=== PATIENT | female | born 1995 | race American Indian/Alaskan Native ===

== ENCOUNTER 2017-11-29 05:31 | Emergency (ER) | payer MEDICAID ==
[2017-11-29 06:11] LABS: Hematocrit 41.6 % (30.3-42.9); Hemoglobin 14.1 gm/dl (10.1-14.3); Mean Corpuscular HGB Conc 34 % (30-34); Mean Corpuscular Hemoglobin 31 pg (28-32); Mean Corpuscular Volume 91 fl (79-97); Platelet Count 302 K/mm3 (140-440); Red Blood Count 4.56 M/mm3 (3.65-5.03); Red Cell Distribution Width 13.3 % (13.2-15.2)
[2017-11-29 06:36] LABS: Alanine Aminotransferase 20 units/L (7-56); Albumin 4.4 g/dL (3.9-5); BUN/Creatinine Ratio 23; Blood Urea Nitrogen 9 mg/dL (7-17); Calcium 9.2 mg/dL (8.4-10.2); Hemolysis Index 8
[2017-11-29 06:55] LABS: Basophils % (Manual) 0 % (0.0-1.8); Eosinophils % (Manual) 0 % (0.0-4.3); Total Cells Counted 100
[2017-11-29 06:56] LABS: RBC Morphology Normal
--- NOTE | 2017-11-29 07:09 | Emergency Department Report ---
ED General Adult HPI - General Chief complaint: Nausea/Vomiting/Diarrhea Stated complaint: NAUSEA/VOMITING Time Seen by Provider: 11/29/17 07:06 Source: patient, EMS (ems notes not available at time of chart dictation), RN notes reviewed Mode of arrival: Stretcher Limitations: No Limitations - History of Present Illness Initial comments: This is a 22-year-old female who was previously unknown to this provider. Patient presents to the ER with resolved nausea and vomiting. Patient reports episodes of nonbloody, nonbilious emesis that started around 5:00 PM yesterday. This is associated with epigastric discomfort, was only started after she vomited. Prior to the emesis, there was no headache, neck pain, chest pain, abdominal pain, shortness of breath. Patient reports that she is not . Her epigastric discomfort does not radiate anywhere. It worsens when she vomits and it decreases with rest. Patient denies irritative urinary symptoms, and reports that occasionally her symptoms improve when taking a hot bath or shower. -: Gradual Location: abdomen Radiation: non-radiation Severity scale (0 -10): 8 Quality: aching Consistency: intermittent Improves with: medication, rest Worsens with: other Associated Symptoms: nausea/vomiting. denies: confusion, chest pain, shortness of breath, syncope, weakness - Related Data Previous Rx's Medication Instructions Recorded Last Taken Type Famotidine [Pepcid] 20 mg PO QDAY #30 tablet 11/29/17 Unknown Rx Ondansetron [Zofran Odt] 4 mg PO Q8HR PRN #20 tab.rapdis 11/29/17 Unknown Rx Allergies Allergy/AdvReac Type Severity Reaction Status Date / Time No Known Allergies Allergy Verified 11/29/17 05:38 ED Review of Systems ROS: Stated complaint: NAUSEA/VOMITING Other details as noted in HPI Constitutional: denies: fever Eyes: denies: vision change ENT: denies: epistaxis Respiratory: denies: cough Cardiovascular: denies: chest pain Gastrointestinal: nausea, vomiting Genitourinary: denies: urgency, dysuria Musculoskeletal: as per HPI. denies: back pain Skin: denies: lesions Neurological: denies: weakness Psychiatric: denies: anxiety ED Past Medical Hx - Past Medical History Previous Medical History?: Yes Hx GERD: Yes - Surgical History Past Surgical History?: No - Social History Smoking Status: Unknown if ever smoked - Medications Home Medications: Home Medications Medication Instructions Recorded Confirmed Last Taken Type Famotidine [Pepcid] 20 mg PO QDAY #30 tablet 11/29/17 Unknown Rx Ondansetron [Zofran Odt] 4 mg PO Q8HR PRN #20 tab.rapdis 11/29/17 Unknown Rx ED Physical Exam - General Limitations: No Limitations General appearance: alert, in no apparent distress - Head Head exam: Present: atraumatic, normocephalic - Eye Eye exam: Present: normal appearance, EOMI. Absent: nystagmus - ENT ENT exam: Present: normal exam, normal orophraynx, mucous membranes moist, normal external ear exam - Neck Neck exam: Present: normal inspection, full ROM - Respiratory Respiratory exam: Present: normal lung sounds bilaterally. Absent: respiratory distress - Cardiovascular Cardiovascular Exam: Present: regular rate, normal rhythm, normal heart sounds. Absent: systolic murmur, diastolic murmur, rubs, gallop - GI/Abdominal GI/Abdominal exam: Present: soft, normal bowel sounds. Absent: distended, tenderness, guarding, rebound, rigid, pulsatile mass - Extremities Exam Extremities exam: Present: normal inspection, full ROM, normal capillary refill. Absent: pedal edema, joint swelling, calf tenderness - Back Exam Back exam: Present: normal inspection, full ROM. Absent: tenderness, CVA tenderness (R), paraspinal tenderness, vertebral tenderness - Neurological Exam Neurological exam: Present: alert, oriented X3, CN II-XII intact, normal gait, other (Extraocular movements intact. Tongue midline. No facial droop. Facial sensation intact to light touch in the V1, V2, V3 distribution bilaterally. 5 and 5 strength in 4 extremities.. Sensation is intact to light touch in 4 extremities.). Absent: motor sensory deficit - Psychiatric Psychiatric exam: Present: normal affect, normal mood - Skin Skin exam: Present: warm, dry, intact, normal color. Absent: rash ED Course Vital Signs 11/29/17 11/29/17 05:40 09:02 Temperature 98.6 F 98.8 F Pulse Rate 96 H 73 Respiratory 22 20 Rate Blood Pressure 118/71 111/68 [Left] O2 Sat by Pulse 100 100 Oximetry - Reevaluation(s) Reevaluation #1: 11/29/17 08:37 Vital Signs 11/29/17 05:40 Temperature 98.6 F Pulse Rate 96 H Respiratory 22 Rate Blood Pressure 118/71 [Left] O2 Sat by Pulse 100 Oximetry Labs 11/29/17 11/29/17 11/29/17 06:02 06:02 08:13 WBC 15.0 H RBC 4.56 Hgb 14.1 Hct 41.6 MCV 91 MCH 31 MCHC 34 RDW 13.3 Plt Count 302 Add Manual Diff Complete Total Counted 100 Seg Neutrophils % Head Inspector And Center Marker Seg Neuts % (Manual) 92.0 H Band Neutrophils % 0 Lymphocytes % (Manual) 3.0 L Reactive Lymphs % (Man) 1.0 Monocytes % (Manual) 4.0 Eosinophils % (Manual) 0 Basophils % (Manual) 0 Metamyelocytes % 0 Myelocytes % 0 Promyelocytes % 0 Blast Cells % 0 Nucleated RBC % Not Reportable Seg Neutrophils # Man 13.8 H Band Neutrophils # 0.0 Lymphocytes # (Manual) 0.5 L Abs React Lymphs (Man) 0.2 Monocytes # (Manual) 0.6 Eosinophils # (Manual) 0.0 Basophils # (Manual) 0.0 Metamyelocytes # 0.0 Myelocytes # 0.0 Promyelocytes # 0.0 Blast Cells # 0.0 WBC Morphology Not Reportable Hypersegmented Neuts Not Reportable Hyposegmented Neuts Not Reportable Hypogranular Neuts Not Reportable Smudge Cells Not Reportable Toxic Granulation Not Reportable Toxic Vacuolation Not Reportable Dohle Bodies Not Reportable Pelger-Huet Anomaly Not Reportable [place] Rods Not Reportable Platelet Estimate Appears normal Clumped Platelets Not Reportable Plt Clumps, EDTA Not Reportable Large Platelets Not Reportable Giant Platelets Not Reportable Platelet Satelliting Not Reportable Plt Morphology Comment Not Reportable RBC Morphology Normal Dimorphic RBCs Not Reportable Polychromasia Not Reportable Hypochromasia Not Reportable Poikilocytosis Not Reportable Anisocytosis Not Reportable Microcytosis Not Reportable Macrocytosis Not Reportable Spherocytes Not Reportable Pappenheimer Bodies Not Reportable Sickle Cells Not Reportable Target Cells Not Reportable Tear Drop Cells Not Reportable Ovalocytes Not Reportable Helmet Cells Not Reportable [place] Bodies Not Reportable [place] Rings Not Reportable Deering Cells Not Reportable Bite Cells Not Reportable Crenated Cell Not Reportable Elliptocytes Not Reportable Acanthocytes (Spur) Not Reportable Rouleaux Not Reportable Hemoglobin C Crystals Not Reportable Schistocytes Not Reportable Malaria parasites Not Reportable [place] Bodies Not Reportable Hem Pathologist Commnt No Sodium 140 Potassium 4.1 Chloride 102.7 Carbon Dioxide 21 L Anion Gap 20 BUN 9 Creatinine 0.4 L Estimated GFR > 60 BUN/Creatinine Ratio 23 Glucose 111 H Calcium 9.2 Total Bilirubin 0.40 AST 21 ALT 20 Alkaline Phosphatase 59 Total Protein 7.5 Albumin 4.4 Albumin/Globulin Ratio 1.4 Urine Bilirubin Neg Urine RBC (Auto) 1.0 U Epithel Cells (Auto) 13.0 Reevaluation #2: 11/29/17 08:37 Differential diagnosis, including but not limited to: GERD, gastritis, cannabinoid hyperemesis syndrome, Assessment and plan: 22-year-old female with resolved nausea and vomiting. Reports that this is happened to her in the past. Reports symptoms improved with exposure to hot water, Bath, shower. Emesis has resolved at this time, patient is clinically sober at this time, and is resting comfortably. She is afebrile with reassuring vital signs, laboratory studies so far unremarkable. She is tolerating liquid feeds. Urine patency test is pending, EKG is pending. Reevaluation #3: 11/29/17 08:56 Vital signs stable, EKG unremarkable, not , urinalysis is not consistent with UTI, belly soft. Exam and tolerating liquid feeds. Patient will be discharged at this time. ED Medical Decision Making - Lab Data Result diagrams: 11/29/17 06:02 11/29/17 06:02 - EKG Data -: EKG Interpreted by Me - EKG Data When compared to previous EKG there are: previous EKG unavailable 11/29/17 08:56 Sinus, 69 beats per minute, normal intervals, normal axis, unremarkable EKG, not morphologically consistent with stemi Critical care attestation.: If time is entered above; I have spent that time in minutes in the direct care of this critically ill patient, excluding procedure time. ED Disposition Clinical Impression: History of nausea and vomiting Disposition: DC-01 TO HOME OR SELFCARE Is pt being admited?: No Does the pt Need Aspirin: No Condition: Stable Instructions: Acute Nausea and Vomiting (ED) Additional Instructions: Take the medications as needed/directed. Avoid consumption of Motrin, ibuprofen , Naprosyn, heavy, spicy foods, heavily caffeinated beverages. Follow up with the primary care doctor or a gastroenterology specialist within the next month. Return to the ER right away with new symptoms, new pain, worsened pain, migration of pain, fevers, chills, lethargy, irritability, projectile vomiting, change in mental status, inability to tolerate liquid feeds. Prescriptions: Famotidine [Pepcid] 20 mg PO QDAY #30 tablet Ondansetron [Zofran Odt] 4 mg PO Q8HR PRN #20 tab.rapdis PRN Reason: Nausea Referrals: PRIMARY CARE,MD [Primary Care Provider] - 3-5 Days JOHNNY LYNN MD [Staff Physician] - 3-5 Days MARIPOSA SIM MD [Staff Physician] - 3-5 Days Forms: Accompanied Note
[2017-11-29] MEDS ORDERED: CARAFATE PO ONE (07:15)
[2017-11-29] MEDS ORDERED: PEPCID IV ONE (07:15)
[2017-11-29 08:32] LABS: Bacteria,Urine 1+ /HPF (Negative); Bilirubin,Urine NEG (Negative); Blood,Urine NEG (Negative); Color,Urine Yellow (Yellow); Mucus,Urine 2+ /HPF; Nitrite,Urine NEG (Negative); Protein,Urine <15 mg/dL mg/dL (Negative); Urobilinogen,Urine < 2.0 mg/dL (<2.0)
[2017-11-29 08:47] LABS: HCG Qualitative,Urine Negative (Negative)
[2017-11-29 09:04] VITALS: BP 111/68
[2017-11-29 10:19] LABS: Amphetamine Screen,Urine PRESUMPTIVE NEGATIVE; Benzodiazepines Screen,Urine PRESUMPTIVE NEGATIVE; Cocaine Screen,Urine PRESUMPTIVE NEGATIVE; Methadone Screen,Urine PRESUMPTIVE NEGATIVE; Opiate Screen,Urine PRESUMPTIVE NEGATIVE
[2017-11-29 10:32] LABS: Cannabinoid Screen,Urine PRESUMPTIVE POSITIVE
== END 2017-11-29 09:23 | disposition home or self-care (01) ==
LOC: ED 05:31
DX: R11.2 Nausea with vomiting, unspecified (principal); K21.9 Gastro-esophageal reflux disease without esophagitis
CPT/HCPCS: 36415; 80053; 80307; 81001; 81025; 85007; 85025; 93005; 93010; 96374